=== PATIENT | male | born 1970 | race American Indian/Alaskan Native ===

== ENCOUNTER 2020-11-24 13:38 | Emergency (ER) | payer MEDICAID ==
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
[2020-11-24 21:08] LABS: Basophils % (Auto) 0.4 % (0.0-1.8); Eosinophils # (Auto) 0.1 K/mm3 (0.0-0.4); Eosinophils % (Auto) 2.5 % (0.0-4.3); Hematocrit 42.2 % (35.5-45.6); Hemoglobin 14.7 gm/dl (11.8-15.2); Lymphocytes # (Auto) 1.6 K/mm3 (1.2-5.4); Lymphocytes % (Auto) 29.7 % (13.4-35.0); Mean Corpuscular HGB Conc 35 % (32-34); Mean Corpuscular Volume 87 fl (84-94); Monocytes # (Auto) 0.5 K/mm3 (0.0-0.8); Monocytes % (Auto) 9.9 % (0.0-7.3); Platelet Count 260 K/mm3 (140-440); Red Blood Count 4.84 M/mm3 (3.65-5.03); Red Cell Distribution Width 13.6 % (13.2-15.2)
[2020-11-24 21:25] LABS: Alanine Aminotransferase 22 units/L (7-56); Albumin 4.5 g/dL (3.9-5); BUN/Creatinine Ratio 15; Blood Urea Nitrogen 12 mg/dL (9-20); Calcium 9.4 mg/dL (8.4-10.2); Hemolysis Index 468
--- NOTE | 2020-11-24 21:28 | Cat Scan Report ---
CT head/brain wo con INDICATION / CLINICAL INFORMATION: 50 years Male; MAIN. TECHNIQUE: Routine CT head without contrast. All CT scans at this location are performed using CT dos e reduction for ALARA by means of automated exposure control. COMPARISON: None. FINDINGS: BRAIN / INTRACRANIAL CONTENTS: The motion degrades the image quality. However, the brain appears to d emonstrate appropriate attenuation for age. The ventricular system is within normal limits in size an d configuration. There is no clear CT evidence of acute intracranial hemorrhage or significant mass e ffect. ORBITS: No significant abnormality of visualized orbits. SINUSES / MASTOIDS: There is a small air-fluid level projected along the posterior left maxillary sin us. The CT maxillofacial will be dictated separately. CRANIOCERVICAL JUNCTION: No significant abnormality. ADDITIONAL FINDINGS: None. IMPRESSION: 1. There is no CT evidence of acute intracranial process. 2. The CT maxillofacial will be dictated separately. Signer Name: John Colin MD Signed: 11/24/2020 9:23 PM Workstation Name: [id number]
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
--- NOTE | 2020-11-24 21:45 | XRay Report ---
RIGHT FOOT 3 VIEW(S) INDICATION / CLINICAL INFORMATION: Great toe pain. COMPARISON: None available. FINDINGS: BONES / JOINT(S): No acute fracture or subluxation. Small periarticular erosion along the medial aspe ct of the great toe proximal phalanx at the interphalangeal joint. SOFT TISSUES: No significant abnormality. ADDITIONAL FINDINGS: None. IMPRESSION: 1. No acute osseous abnormality. 2. Small periarticular erosion along the medial aspect of the great toe proximal phalanx at the inter phalangeal joint. These seen in the clinical setting of gout/crystalline arthropathy. Clinical correl ation is recommended. Signer Name: Jamie Hsu MD Signed: 11/24/2020 9:41 PM Workstation Name: [id number]
[2020-11-24] MEDS ORDERED: TETANUS,DIPH,PERTUSS(ACELL) VACCINE 0.5 ML SYRINGE IM ONE (22:32)
[2020-11-25] MEDS ORDERED: cefTRIAXone/NS 1 GM/50 ML 1 GM/50 ML BAG IV ONE (01:29)
[2020-11-25 01:47] VITALS: BP 123/70
== END 2020-11-25 02:10 | disposition other institution (70) ==
LOC: ED 13:38
DX: S02.40FA Zygomatic fracture, left side, initial encounter for closed fracture (principal); S90.31XA Contusion of right foot, initial encounter; R04.0 Epistaxis; I10 Essential (primary) hypertension; E11.9 Type 2 diabetes mellitus without complications; J45.909 Unspecified asthma, uncomplicated; Z98.890 Other specified postprocedural states; Y04.8XXA Assault by other bodily force, initial encounter; Y93.89 Activity, other specified; Y92.89 Other specified places as the place of occurrence of the external cause; Y99.8 Other external cause status
CPT/HCPCS: 36415; 70450; 70486; 71046; 80053; 80320; 84132; 85025; 90471; 90715; G0480